=== PATIENT | female | born 1990 ===

== ENCOUNTER 2024-11-21 22:55 | Emergency (ER) | payer SELFPAY ==
[2024-11-21] MEDS ORDERED: Sodium Chloride 0.9% 10 ML Syringe FLUSH PRN (23:07)
[2024-11-21] MEDS: Ondansetron 4 MG/2 ML SDV IVPUSH ONE (23:32)
== END 2024-11-22 01:00 | disposition home or self-care (01) ==
LOC: KA.ED 22:55
DX: S40.011A Contusion of right shoulder, initial encounter (principal); S20.211A Contusion of right front wall of thorax, initial encounter; Z88.6 Allergy status to analgesic agent; V18.0XXA Pedal cycle driver injured in noncollision transport accident in nontraffic accident, initial encounter; Y93.55 Activity, bike riding
CPT/HCPCS: 71101-RT; 73030-RT; 96374; 96375; 96376; 99283; 99283-25; A9270-GY; J2270; J2405

== ENCOUNTER 2024-12-09 20:47 | Emergency (ER) | payer SELFPAY ==
[2024-12-09] MEDS ORDERED: Naloxone 0.4 MG/ML SDV IVPUSH PRN (22:00)
== END 2024-12-09 23:10 | disposition home or self-care (01) ==
LOC: KA.ED 20:47 → SUPCPDRO 20:47 → KA.ED 23:10
DX: M25.511 Pain in right shoulder (principal); G89.29 Other chronic pain; Z79.899 Other long term (current) drug therapy
CPT/HCPCS: 73200-RT; 96372; 99284; A9270-GY; J1171